=== PATIENT | female | born 1950 | race Caucasian/White ===

== ENCOUNTER 2017-10-17 16:50 | Inpatient (IN) | payer MEDICARE ==
[2017-10-17] MEDS ORDERED: IV NORMAL SALINE 1000ML BAG 1,000 ML IV (18:00)
[2017-10-17 19:05] LABS: ADD MAN DIFF? NO
[2017-10-17 19:09] LABS: BASO % 1 % (0-3); EOS % 0 % (0-3); LYMPH # 0.9 x10^3/uL (1.0-4.8); LYMPH % 30 % (24-48); MEAN CORPUSCULAR HEMOGLOBIN 21 pg (25-35); MEAN CORPUSCULAR HGB CONC 30 g/dL (31-37); MEAN CORPUSCULAR VOLUME 70 fL (79-100); MONO # 0.3 x10^3/uL (0.0-1.1); MONO % 9 % (0-9); NEUT # 1.7 x10^3uL (1.8-7.7); NEUT % 60 % (31-73); PLATELET COUNT 207 x10^3/uL (140-400); RED BLOOD COUNT 2.66 x10^6/uL (3.50-5.40); WHITE BLOOD COUNT 2.9 x10^3/uL (4.0-11.0)
[2017-10-17 19:15] LABS: HEMATOCRIT 18.6 % (36.0-47.0); HEMOGLOBIN 5.6 g/dL (12.0-15.5)
[2017-10-17 19:23] LABS: ALBUMIN 3.1 g/dL (3.4-5.0); ALBUMIN/GLOBULIN RATIO 0.9 (1.0-1.7); ALK PHOS 61 U/L (46-116); ALT (SGPT) 13 U/L (14-59); ANION GAP 10 (6-14); AST (SGOT) 13 U/L (15-37); BLOOD UREA NITROGEN 16 mg/dL (7-20); BUN/CREATININE RATIO 27 (6-20); CALCIUM 8.6 mg/dL (8.5-10.1); CARBON DIOXIDE 25 mmol/L (21-32); CHLORIDE 104 mmol/L (98-107); CREATININE 0.6 mg/dL (0.6-1.0); GFR 99.4; GLUCOSE 89 mg/dL (70-99); POTASSIUM 4.2 mmol/L (3.5-5.1); SODIUM 139 mmol/L (136-145); TOTAL BILIRUBIN 0.4 mg/dL (0.2-1.0); TOTAL PROTEIN 6.7 g/dL (6.4-8.2)
[2017-10-17 19:28] LABS: TROPONINI < 0.017 ng/mL (0.000-0.055)
[2017-10-17 19:28] LABS: INR 1.1 (0.8-1.1); PARTIAL THROMBOPLASTIN TIME 31 SEC (24-38); PROTHROMBIN TIME PATIENT 13.5 SEC (11.7-14.0)
[2017-10-17 19:49] LABS: PLT ESTIMATE ADEQUATE (ADEQUATE)
[2017-10-17 19:51] LABS: ANISOCYTOSIS MOD; HYPOCHROMIA MOD; MICROCYTOSIS MARKED; OVALOCYTES FEW; POLYCHROMASIA SLIGHT; TEAR DROP CELLS FEW
[2017-10-17] MEDS: PANTOPRAZOLE SODIUM IV DRIP 80 MG in IV NORMAL SALINE 100ML 100 ML IV (21:57)
[2017-10-17 22:05] LABS: IMMEDIATE SPIN CROSSMATCH 1
[2017-10-18] MEDS: PANTOPRAZOLE SODIUM IV DRIP 80 MG in IV NORMAL SALINE 100ML 100 ML IV ×2 (09:04→20:31)
[2017-10-18] MEDS: IV NORMAL SALINE 1000ML BAG 1,000 ML IV ×2 (10:00→20:32)
[2017-10-18 10:26] LABS: HEMATOCRIT 25.4 % (36.0-47.0); HEMOGLOBIN 7.7 g/dL (12.0-15.5); MEAN CORPUSCULAR HGB CONC 30 g/dL (31-37)
[2017-10-18] MEDS: SUCRALFATE 1 GM TABLET. PO ×3 (11:48→20:08)
[2017-10-18 12:43] LABS: HEMOGLOBIN 7.6 g/dL (12.0-15.5); MEAN CORPUSCULAR HGB CONC 30 g/dL (31-37)
[2017-10-18 13:12] LABS: THYROID STIM HORMONE (TSH) 2.696 uIU/mL (0.358-3.74)
[2017-10-18 13:20] LABS: FERRITIN 5 ng/mL (8-252)
[2017-10-18 14:50] LABS: IMMEDIATE SPIN CROSSMATCH 1 3
[2017-10-19] MEDS: PANTOPRAZOLE SODIUM IV DRIP 80 MG in IV NORMAL SALINE 100ML 100 ML IV ×2 (00:39→06:10)
[2017-10-19 06:59] LABS: HEMATOCRIT 30.3 % (36.0-47.0); HEMOGLOBIN 9.2 g/dL (12.0-15.5); MEAN CORPUSCULAR HGB CONC 30 g/dL (31-37)
[2017-10-19] MEDS: PANTOPRAZOLE 40 MG TABLET.DR. PO ×2 (08:49→16:10)
[2017-10-19] MEDS: SUCRALFATE 1 GM TABLET. PO ×4 (08:49→20:00)
[2017-10-19] MEDS: DICLOFENAC SODIUM 1% TOPICAL GEL 100GM TUBE. TP (15:56)
[2017-10-19] MEDS: ACETAMINOPHEN 325 MG TABLET. PO (16:10)
[2017-10-20 05:38] LABS: HEMOGLOBIN 9.1 g/dL (12.0-15.5); MEAN CORPUSCULAR HEMOGLOBIN 24 pg (25-35); MEAN CORPUSCULAR HGB CONC 31 g/dL (31-37); MEAN CORPUSCULAR VOLUME 75 fL (79-100); PLATELET COUNT 202 x10^3/uL (140-400); RED BLOOD COUNT 3.86 x10^6/uL (3.50-5.40); RED CELL DISTRIBUTION WIDTH 22.5 % (11.5-14.5); WHITE BLOOD COUNT 2.5 x10^3/uL (4.0-11.0)
[2017-10-20] MEDS: SUCRALFATE 1 GM TABLET. PO ×4 (08:46→20:16)
[2017-10-20] MEDS: PANTOPRAZOLE 40 MG TABLET.DR. PO ×2 (08:46→17:15)
[2017-10-20] MEDS: DICLOFENAC SODIUM 1% TOPICAL GEL 100GM TUBE. TP (08:47)
[2017-10-20 09:12] LABS: VITAMIN-B12 201 pg/mL (247-911)
[2017-10-20] MEDS: IRON SUCROSE COMPLEX 500 MG in IV NORMAL SALINE 250ML 250 ML IV (09:19)
[2017-10-20] MEDS: IV RINGERS,LACTATED 1000ML 1,000 ML IV (12:21)
[2017-10-20] MEDS ORDERED: LIDOCAINE 2% PF Vial for OR 5 ML VIAL. (12:42)
[2017-10-20] MEDS ORDERED: PROPOFOL 20 ML IV (12:42)
[2017-10-21] MEDS: IV RINGERS,LACTATED 1000ML 1,000 ML IV (02:20)
[2017-10-21 05:53] LABS: ADD MAN DIFF? NO
[2017-10-21 06:06] LABS: BASO % 0 % (0-3); EOS # 0.1 x10^3/uL (0.0-0.7); EOS % 2 % (0-3); HEMOGLOBIN 9.4 g/dL (12.0-15.5); LYMPH # 0.7 x10^3/uL (1.0-4.8); LYMPH % 25 % (24-48); MEAN CORPUSCULAR HEMOGLOBIN 23 pg (25-35); MEAN CORPUSCULAR HGB CONC 30 g/dL (31-37); MEAN CORPUSCULAR VOLUME 75 fL (79-100); MONO # 0.3 x10^3/uL (0.0-1.1); MONO % 11 % (0-9); NEUT # 1.8 x10^3uL (1.8-7.7); NEUT % 61 % (31-73); PLATELET COUNT 219 x10^3/uL (140-400); RED BLOOD COUNT 4.12 x10^6/uL (3.50-5.40); RED CELL DISTRIBUTION WIDTH 22.9 % (11.5-14.5); WHITE BLOOD COUNT 2.9 x10^3/uL (4.0-11.0)
[2017-10-21] MEDS: PANTOPRAZOLE 40 MG TABLET.DR. PO (08:58)
[2017-10-21] MEDS: CYANOCOBALAMIN (VITAMIN B-12) 1,000 MCG/ML VIAL SQ (08:58)
== END 2017-10-21 14:11 | disposition home or self-care (01) | DRG 378 ==
LOC: 6 SOUTH 16:50
PROC: 0DJ08ZZ Inspection of Upper Intestinal Tract, Via Natural or Artificial Opening Endoscopic (ICD-10-PCS; principal; 2017-10-20 13:00)
PROC: 30233N1 Transfusion of Nonautologous Red Blood Cells into Peripheral Vein, Percutaneous Approach (ICD-10-PCS; 2017-10-20 13:03)
DX: K92.2 Gastrointestinal hemorrhage, unspecified (principal); D62 Acute posthemorrhagic anemia; D50.9 Iron deficiency anemia, unspecified; D72.819 Decreased white blood cell count, unspecified; E53.8 Deficiency of other specified B group vitamins; K25.4 Chronic or unspecified gastric ulcer with hemorrhage; K44.9 Diaphragmatic hernia without obstruction or gangrene; Z87.11 Personal history of peptic ulcer disease; Z91.011 Allergy to milk products
CPT/HCPCS: 36415; 71111; 80053; 82607; 82728; 84443; 84484; 85014; 85018; 85025; 85027; 85610; 85730; 86850; 86900; 86901; 86920; 93005; C9113; J1756; J2704; J3420; J7030; J7050; J7120; P9016

== ENCOUNTER → 2017-11-24 | Outpatient (CLI) | payer MEDICARE | END | disposition home or self-care (01) | LOC: KCIC MAMMO 10:56 | DX: Z12.31 Encounter for screening mammogram for malignant neoplasm of breast (principal); Z13.820 Encounter for screening for osteoporosis; M85.88 Other specified disorders of bone density and structure, other site; M81.0 Age-related osteoporosis without current pathological fracture; Z78.0 Asymptomatic menopausal state | CPT/HCPCS: 77067; 77080 ==

== ENCOUNTER → 2018-09-14 | Outpatient (CLI) | payer BC, MEDICARE ==
[~2018-09-14] VITALS: Ht 165.1 cm; Wt 73.5 kg
[~2018-09-14] MED LIST: ACET500T68 PO; ALBU2.5V8 INH; ALEN70TA6 PO; FAMO-63 PO; FERR325T72 PO; IRON18TA PO; OMEP40CA5 PO; PANT20TA3 PO; PANT40TA77 PO; SUCR1TAB PO; ZOLEDRONICACID 5mg/100mlPREMIX 100 ML IV ONE
[2018-09-14 10:35] VITALS: BP 140/64
== END | disposition home or self-care (01) ==
LOC: OPS 09:27
PROVIDERS: ATTEND Family Medicine
DX: M81.0 Age-related osteoporosis without current pathological fracture (principal); I25.10 Atherosclerotic heart disease of native coronary artery without angina pectoris; M19.90 Unspecified osteoarthritis, unspecified site; K21.9 Gastro-esophageal reflux disease without esophagitis; E03.9 Hypothyroidism, unspecified; D61.818 Other pancytopenia; F32.9 Major depressive disorder, single episode, unspecified; D72.829 Elevated white blood cell count, unspecified; Z98.890 Other specified postprocedural states; Z78.0 Asymptomatic menopausal state; Z90.710 Acquired absence of both cervix and uterus; Z98.1 Arthrodesis status; Z79.899 Other long term (current) drug therapy; Z87.11 Personal history of peptic ulcer disease
CPT/HCPCS: 96365; J3489

== ENCOUNTER 2019-01-04 16:05 | Inpatient (IN) | payer BC, MEDICARE ==
[2019-01-04] VITALS (8 sets, daily range): BP systolic 103–123; BP diastolic 29–53
[~2019-01-04] VITALS: Ht 165.1 cm; Wt 74.4 kg
[~2019-01-04 16:05] MED LIST changes: -ALBU2.5V8 INH; +PANT40TA5 PO; -PANT40TA77 PO; -SUCR1TAB PO; -ZOLEDRONICACID 5mg/100mlPREMIX 100 ML IV ONE
[2019-01-04] MEDS ORDERED: ACETAMINOPHEN 500 MG TABLET PO PRN (18:30)
--- NOTE | 2019-01-04 18:59 | HP ---
ADMIT DATE: 01/04/2019 CHIEF COMPLAINT: Weakness. HISTORY OF PRESENT ILLNESS: A 68-year-old white female with chronic anemia secondary to GI blood loss, presented to the office with weakness, fatigue and ____ consistent with worsening anemia. Hemoglobin was found to be 6 and she was admitted for further evaluation because of weakness and chest pain. She has not noted melena or hematochezia, but still has chronic dysphagia after endoscopy in July 2018 showed a distal esophageal stricture that was benign in nature. She has been taking iron pills periodically and her last hemoglobin prior to admission was 10.4 in August 2018. PAST MEDICAL HISTORY: Well documented in the old records. Colonoscopy, timing is unclear, but does not found bleeding lesion, just having ____. FAMILY HISTORY: Unremarkable. SURGICAL HISTORY: Unremarkable. REVIEW OF SYSTEMS: No other complaints. OBJECTIVE: HEENT: Moderate pallor, sclerae are clear. TMs and pharynx normal. NECK: Revealed no carotid bruits, JVD, nodes or masses. LUNGS: Clear. CARDIOVASCULAR: Regular rate. Grade 2 systolic murmur. Mild tachycardia. EXTREMITIES: Nail bed pallor is noted. Pulses are diminished. No edema is noted. NEUROLOGIC: Physiologic and nonfocal. ASSESSMENT: Chronic and recurrent microcytic anemia secondary to occult gastrointestinal blood loss, history of distal esophageal strictures. PLAN: Admit for transfusion of 2 units of packed cells and GI consideration for upper endoscopy. See orders. LAVERNE ACOSTA MD DR: SHREYA/tyler JOB#: [id number] / [id number]
[2019-01-04 19:03] LABS: BASO % 1 % (0-3); EOS % 1 % (0-3); LYMPH # 0.7 x10^3/uL (1.0-4.8); LYMPH % 26 % (24-48); MEAN CORPUSCULAR HEMOGLOBIN 19 pg (25-35); MEAN CORPUSCULAR HGB CONC 29 g/dL (31-37); MEAN CORPUSCULAR VOLUME 66 fL (79-100); MONO # 0.2 x10^3/uL (0.0-1.1); MONO % 8 % (0-9); NEUT # 1.8 x10^3uL (1.8-7.7); NEUT % 65 % (31-73); PLATELET COUNT 214 x10^3/uL (140-400); RED BLOOD COUNT 2.78 x10^6/uL (3.50-5.40); RED CELL DISTRIBUTION WIDTH 17.6 % (11.5-14.5); WHITE BLOOD COUNT 2.8 x10^3/uL (4.0-11.0)
[2019-01-04 19:12] LABS: HEMOGLOBIN 5.3 g/dL (12.0-15.5)
[2019-01-04 19:26] LABS: ALBUMIN 3.2 g/dL (3.4-5.0); ALBUMIN/GLOBULIN RATIO 0.9 (1.0-1.7); CALCIUM 8.4 mg/dL (8.5-10.1); CREATININE 0.7 mg/dL (0.6-1.0); GFR 82.7; POTASSIUM 4.1 mmol/L (3.5-5.1); TOTAL BILIRUBIN 0.4 mg/dL (0.2-1.0); TOTAL PROTEIN 6.9 g/dL (6.4-8.2)
--- NOTE | 2019-01-04 19:28 | NUR ---
The patient, SHENG VARELA, 68 y/o, F admitted by LAVERNE ACOSTA MD, was given written information regarding hospital policies, unit procedures and contact persons. Valuables were checked and NOTED TO CHART.
[2019-01-04 19:49] LABS: PLT ESTIMATE ADEQUATE (ADEQUATE)
[2019-01-04 19:51] LABS: ANISOCYTOSIS SLIGHT; HYPOCHROMIA MARKED; POIKILOCYTOSIS SLIGHT
[2019-01-04 19:52] LABS: MICROCYTOSIS MARKED; OVALOCYTES FEW; TEAR DROP CELLS OCC
[2019-01-05] VITALS (11 sets, daily range): BP systolic 94–150; BP diastolic 28–59
[2019-01-05] MEDS: PANTOPRAZOLE 40 MG TABLET.DR. PO SCH (07:30)
--- NOTE | 2019-01-05 08:27 | PDOC ---
Provider Note Provider Note vss, hb 5.3 after 2 u prbc- 1 more unit today, follow- gi consult pending,rest of lab ok LAVERNE ACOSTA MD Jan 05, 2019 08:27
[2019-01-05] MEDS ORDERED: ACETAMINOPHEN 325 MG TABLET. PO PRN (08:30)
[2019-01-05] MEDS: FERROUS SULFATE 325 MG TABLET. PO SCH (09:00)
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
[2019-01-05 09:41] LABS: HEMATOCRIT 18.4 % (36.0-47.0)
[2019-01-05 10:30] LABS: HEMOGLOBIN 8.1 g/dL (12.0-15.5); RED BLOOD COUNT 3.84 x10^6/uL (3.50-5.40); WHITE BLOOD COUNT 2.9 x10^3/uL (4.0-11.0)
[2019-01-05 10:31] LABS: HEMATOCRIT 27.4 % (36.0-47.0); RED CELL DISTRIBUTION WIDTH 20.2 % (11.5-14.5)
[2019-01-05] MEDS ORDERED: LIDOCAINE 2% PF 5 ML VIAL. ONE (15:15)
[2019-01-05] MEDS ORDERED: PROPOFOL 20 ML IV ONE (15:15)
--- NOTE | 2019-01-05 15:35 | PDOC4 ---
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
[2019-01-06 03:00] VITALS: BP 103/49
[2019-01-06 07:00] VITALS: BP 115/37
[2019-01-06] MEDS: PANTOPRAZOLE 40 MG TABLET.DR. PO SCH (07:55)
[2019-01-06] MEDS: FERROUS SULFATE 325 MG TABLET. PO SCH ×2 (07:55→08:44)
--- NOTE | 2019-01-06 08:38 | PDOC ---
Provider Note Provider Note [id number] LAVERNE ACOSTA MD January 06, 2019 08:38
--- NOTE | 2019-01-06 10:57 | PDOC ---
Subjective: Subjective: Feeling better, glad to get to go home today. 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 Encouraged compliance w/ PPI and iron. Follow-up re: biopsy results and any plans for EUS and/or colonoscopy/SBCE. USHA SCOTT January 06, 2019 10:57
[2019-01-06 11:00] VITALS: BP 110/33
--- NOTE | 2019-01-06 15:40 | NUR ---
Patient was discharged from the facility at 1500. The patient left with her belongings and discharge information. The discharge information was discussed with the patient and she had no questions or concerns regarding the information. The patient was escorted from the unit in a wheelchair by staff to a private vehicle being driven by family.
--- NOTE | 2019-01-06 15:46 | DS ---
DATE OF DISCHARGE: 01/06/2019 HOSPITAL SUMMARY: A 68-year-old white female with chronic recurrent anemia secondary to occult GI bleeding, came in with a hemoglobin of 5.8, fatigue, chest pain and exertional dyspnea. MCV was microcytic consistent with chronic iron loss. Rest of chemistry profile unremarkable. After 2 units of packed cells, her hemoglobin was up to 8.1 on 01/05/2019. She underwent upper endoscopy with no active bleeding, but some lesions were found in the stomach. They were biopsied by Dr. Pandey and results are pending at this time. If he is comfortable, she will be discharged later today and followed as an outpatient. FINAL DIAGNOSES: Chronic iron deficiency anemia secondary to occult gastrointestinal bleeding. OPERATIONS AND PROCEDURES: EGD and gastric biopsies. COMPLICATIONS: None. CONSULTATIONS: Dr. Pandey. DISPOSITION: Home meds remain the same. Office follow up in 1 week with myself and with Dr. Pandey in 1-2 weeks regarding biopsy reports and further plans based on this. Prognosis is guarded. LAVERNE ACOSTA MD DR: SHREYA/tyler JOB#: [id number] / [id number]
--- NOTE | 2019-01-07 14:41 | PATHOLOGY ---
[facility] Accession Number: [id number] . 01 Material submitted: . stomach - GASTRIC ANTRUM BIOPSY . 01 Clinical history: . GI bleed . 02 Diagnosis: Gastric biopsies, gastric antrum: - Hyperplastic antral polyp. . (JPM:mm; 01/07/2019) [facility]/01/07/2019 . 02 Comment: Sections of the gastric biopsy reveal segments of gastric antral mucosa showing congestion and foveolar hyperplasia and no significant inflammation. A properly-controlled immunoperoxidase stain for Helicobacter is obtained. No Helicobacter organisms are identified. The findings are compatible with a hyperplastic antral polyp. There are no adenomatous changes or evidence of malignancy. . Special stain performed: Immunoperoxidase stain for Helicobacter. . (JPM:mml; 01/07/2019) . 02 Electronically signed: . Sheldon Marinelli MD, Pathologist NPI- [id number] . 01 Gross description: . Received in formalin labeled "Akash, Tonya, gastric antrum BX," are 6 segments of ogden soft tissue measuring 1.3 x 0.8 x 0.2 cm in aggregate dimensions and ranging from 0.3 to 0.6 cm in maximum dimension. The specimen is submitted entirely in cassette A1. (TSD; 01/06/2019) TOB/TOB . 02 Pathologist provided ICD-10: K31.7 . 02 CPT . 781059, W52918 Specimen Comment: A courtesy copy of this report has been sent to Specimen Comment: [phone], . Specimen Comment: Report sent to / DR ACOSTA Performed at: [address], [place], [place] [id number] MD Adan Bowser MD Phone: [phone] Performed at: [address] [id number] MD Sheldon Marinelli MD Phone: [phone]
[2019-02-12] MEDS ORDERED: SUCR1TAB PO (07:10)
[2019-02-12] MEDS ORDERED: ALBU2.5V8 INH (07:10)
== END 2019-01-06 15:00 | disposition home or self-care (01) | DRG 378 ==
LOC: 5 NORTH 17:01
PROVIDERS: ADMIT Family Medicine; ATTEND Family Medicine
PROC: 30233N1 Transfusion of Nonautologous Red Blood Cells into Peripheral Vein, Percutaneous Approach (ICD-10-PCS; principal; 2019-01-04)
PROC: 0DB48ZX Excision of Esophagogastric Junction, Via Natural or Artificial Opening Endoscopic, Diagnostic (ICD-10-PCS; 2019-01-05)
DX: K92.2 Gastrointestinal hemorrhage, unspecified (principal); E44.0 Moderate protein-calorie malnutrition; K22.2 Esophageal obstruction; D50.0 Iron deficiency anemia secondary to blood loss (chronic); M81.0 Age-related osteoporosis without current pathological fracture; G47.33 Obstructive sleep apnea (adult) (pediatric); K44.9 Diaphragmatic hernia without obstruction or gangrene; Z90.710 Acquired absence of both cervix and uterus
CPT/HCPCS: 36415; 43239; 80053; 82607; 85025; 85027; 86850; 86900; 86901; 86920; 88305; 88342; J2001; J2704; P9016

== ENCOUNTER → 2019-02-12 | Day surgery (SDC) | payer BC, MEDICARE ==
[~2019-02-12] MED LIST changes: +ALBU2.5V8 INH; +GLYCOPYRROLATE 1 MG/5 ML SYRINGE. ONE; +HYDROmorphone 2 MG/ML VIAL IV PRN; +IV RINGERS,LACTATED 1000ML 1,000 ML IV SCH; +LIDOCAINE 1% PF 2 ML VIAL. ID PRN; +LIDOCAINE 2% PF 5 ML VIAL. ONE; +MORPHINE SULFATE 2 MG/ML VIAL. IV PRN; +ONDANSETRON PF 4 MG/2 ML VIAL. IV PRN; +PROCHLORPERAZINE 10 MG/2 ML VIAL. IV PRN; +PROPOFOL 20 ML IV ONE; +SUCR1TAB PO; +fentaNYL PF VIAL 100 MCG/2 ML VIAL IV PRN
[2019-02-12 08:31] VITALS: BP 131/65
== END ==
LOC: ENDOS 06:24
PROVIDERS: ATTEND Internal Medicine Gastroenterology
DX: K57.30 Diverticulosis of large intestine without perforation or abscess without bleeding (principal); D50.0 Iron deficiency anemia secondary to blood loss (chronic); K64.0 First degree hemorrhoids; K44.9 Diaphragmatic hernia without obstruction or gangrene; K21.9 Gastro-esophageal reflux disease without esophagitis; Z90.710 Acquired absence of both cervix and uterus
CPT/HCPCS: 45378; J2001; J2704; J3490

== ENCOUNTER → 2019-03-01 | Outpatient (CLI) | payer BC, MEDICARE ==
[2019-02-12 08:31] VITALS: BP 131/65
[~2019-03-01] MED LIST changes: +BARIUM SULFATE 60% 355 ML SUSP PO ONE; -GLYCOPYRROLATE 1 MG/5 ML SYRINGE. ONE; -HYDROmorphone 2 MG/ML VIAL IV PRN; -IV RINGERS,LACTATED 1000ML 1,000 ML IV SCH; -LIDOCAINE 1% PF 2 ML VIAL. ID PRN; -LIDOCAINE 2% PF 5 ML VIAL. ONE; -MORPHINE SULFATE 2 MG/ML VIAL. IV PRN; -ONDANSETRON PF 4 MG/2 ML VIAL. IV PRN; -PROCHLORPERAZINE 10 MG/2 ML VIAL. IV PRN; -PROPOFOL 20 ML IV ONE; -fentaNYL PF VIAL 100 MCG/2 ML VIAL IV PRN
--- NOTE | 2019-03-01 16:47 | RAD ---
CLINICAL HISTORY: Anemia COMPARISON: None available. TECHNIQUE: A small bowel follow-through study was performed. Barium contrast was ingested orally and multiple were taken at time intervals until barium reached the cecum. Additional spot images were obtained during manual compression. FINDINGS: The electrical line mechanic film demonstrates a nonobstructive bowel gas pattern. There are no abnormal calcifications projected in the region of the kidneys, bladder, or gallbladder. Moderate to large volume colonic stool content is seen. The serial films of barium traversing the small bowel to the cecum reveal a normal transit time. Contrast material is present in the colon after 60 minutes. Small bowel mucosal pattern and caliber is normal throughout. There is no evidence of obstruction or filling defect. The terminal ileum appears normal. Fluoroscopy time: 0.3 minutes IMPRESSION: Normal small bowel follow through exam. Electronically signed by: Carlos Duff MD (03/01/2019 4:44 PM) [facility]
== END | disposition home or self-care (01) ==
LOC: RAD 07:17
PROVIDERS: ATTEND Internal Medicine Gastroenterology
DX: D64.9 Anemia, unspecified (principal)
CPT/HCPCS: 74250

== ENCOUNTER → 2020-04-12 | Outpatient (CLI) | payer BC ==
[2020-03-01 08:56] VITALS: BP 160/70
[~2020-04-12] MED LIST changes: -BARIUM SULFATE 60% 355 ML SUSP PO ONE; +OMEP40CA45 PO; -OMEP40CA5 PO; -PANT40TA5 PO; +PANT40TA77 PO; +TRAM50TA PO
--- NOTE | 2020-04-12 11:33 | KCIC ---
UPPER GI AIR CONTRAST WITH KUB History: Hiatal hernia, reflux, GI bleed, history of Crohn's Comparison: None. Findings: Rail Car Painter/Sandblaster radiograph demonstrates a nonobstructive bowel gas pattern. Calcifications in the left upper quadrant of the abdomen are likely due to splenic granulomas. Upper GI exam was performed. There is moderate to large hiatal hernia containing about one half of the superior stomach. Overall caliber of the esophagus is within normal limits, some tertiary contractions of the distal one third of esophagus. There was residual column of contrast in the esophagus with patient in prone oblique position although emptied with patient in upright position. There is mild narrowing or incomplete relaxation at level of the lower esophageal sphincter. Fluoroscopy time 3.02 minutes and 28 images Impression: 1. There is moderate to large hiatal hernia containing about one half of the superior stomach. There is mild esophageal dysmotility. Electronically signed by: Allen Ruvalcaba MD (04/12/2020 11:30 AM) [id number]
== END | disposition home or self-care (01) ==
LOC: KCIC 07:50
PROVIDERS: ATTEND Surgery
DX: K21.9 Gastro-esophageal reflux disease without esophagitis (principal); K44.9 Diaphragmatic hernia without obstruction or gangrene
CPT/HCPCS: 74240

== ENCOUNTER → 2020-04-18 | Outpatient (CLI) | payer BC ==
[2020-03-01 08:56] VITALS: BP 160/70
--- NOTE | 2020-04-18 11:50 | CARD ---
MR#: [id number] Date of Study: 04/18/2020 Ordering Physician: ANDREA GUTIERREZ, Referring Physician: ANDREA GUTIERREZ, Tech: Natalie Pemberton [facility] APPROVED REPORT EXAM: Two-dimensional and M-mode echocardiogram with Doppler and color Doppler. Other Information Quality : Good INDICATION Dyspnea 2D DIMENSIONS RVDd2.8 (2.9-3.5cm)Left Atrium(2D)2.9 (1.6-4.0cm) IVSd1.4 (0.7-1.1cm)Aortic Root(2D)2.9 (2.0-3.7cm) LVDd3.7 (3.9-5.9cm)LVOT Diameter2.2 (1.8-2.4cm) PWd0.9 (0.7-1.1cm)LVDs2.6 (2.5-4.0cm) FS (%) 29.6 %SV34.2 ml LVEF(%)57.5 (>50%) Aortic Valve AoV Peak Murtaza.166.2cm/sAoV VTI36.0cm AO Peak GR.11.1mmHgLVOT Peak Murtaza.121.0cm/s LVOT VTI 27.93cmAO Mean GR.6mmHg EMILIA (VMAX)2.73pb1SDW (VTI)2.82cm2 Mitral Valve MV E Iertmxxh20.3cm/sMV DECEL BHRM223pt MV A Boxllwbh48.9cm/sMV EMB57gm E/A Ratio0.6MVA (PHT)3.31cm2 TDI E/Lateral E'14.0E/Medial E'10.5 Tricuspid Valve TR P. Nbgufwrl693ae/sRAP USTXKTTC6fbHt TR Peak Gr.35qtNdQCCC60zuWc Pulmonary Vein S1 Zbywpibi16.1cm/sD2 Wwqhpyfv34.2cm/s LEFT VENTRICLE The left ventricle is normal size. There is normal left ventricular wall thickness. The left ventricu lar systolic function is normal and the ejection fraction is within normal range. The Ejection Fracti on is 60-65%. There is normal LV segmental wall motion. Transmitral Doppler flow pattern is Grade I-a bnormal relaxation pattern. RIGHT VENTRICLE The right ventricle is normal size. The right ventricular systolic function is normal. ATRIA The left atrium size is normal. The right atrium size is normal. The interatrial septum is intact wit h no evidence for an atrial septal defect or patent foramen ovale as noted on 2-D or Doppler imaging. AORTIC VALVE The aortic valve is calcified but opens well. Doppler and Color Flow revealed no significant aortic r egurgitation. There is no significant aortic valvular stenosis. MITRAL VALVE The mitral valve is normal in structure and function. There is no evidence of mitral valve prolapse. There is no mitral valve stenosis. Doppler and Color Flow revealed no mitral valve regurgitation note d. TRICUSPID VALVE The tricuspid valve is normal in structure and function. Doppler and Color Flow revealed mild tricusp id regurgitation. There is mild pulmonary hypertension. The PA pressure was estimated at 33 mmHg. The re is no tricuspid valve stenosis. PULMONIC VALVE The pulmonic valve is not well visualized. Doppler and Color Flow revealed no pulmonic valvular regur gitation. There is no pulmonic valvular stenosis. GREAT VESSELS The aortic root is normal in size. The ascending aorta is moderately dilated at 3.6 cm. The IVC is no rmal in size and collapses >50% with inspiration. PERICARDIAL EFFUSION There is no evidence of significant pericardial effusion. Critical Notification Critical Value: No <Conclusion> The left ventricular systolic function is normal and the ejection fraction is within normal range. Th e Ejection Fraction is 60-65%. There is normal LV segmental wall motion. The ascending aorta is moderately dilated at 3.6 cm. Signed by : Andrea Gutierrez, Electronically Approved : 04/18/2020 11:49:49
== END | disposition home or self-care (01) ==
LOC: ECHO 08:38
PROVIDERS: ATTEND Internal Medicine Cardiovascular Disease
DX: I08.2 Rheumatic disorders of both aortic and tricuspid valves (principal); I27.20 Pulmonary hypertension, unspecified
CPT/HCPCS: 93306

== ENCOUNTER → 2020-05-22 | Outpatient (CLI) | payer BC ==
[2020-03-01 08:56] VITALS: BP 160/70
[~2020-05-22] MED LIST changes: +BARIUM SULFATE 340 GM SUSPENSION. PO ONE; +BARIUM SULFATE 60% 355 ML SUSP PO ONE; +BARIUM SULFATE 700 MG TABLET PO ONE; +SIMETHICONE/SOD BICARB/CITRIC ACID PACKET. PO ONE
--- NOTE | 2020-05-22 13:07 | RAD ---
Barium esophagogram INDICATION: Hiatal hernia COMPARISON: Upper GI series 04/12/2020 TECHNIQUE: Bilateral upright posterior oblique imaging of the thoracic esophageal ingestion of thick and thin barium was performed in addition to use of effervescent crystals and a barium tablet. Supine imaging was also performed. Total fluoroscopy time was 2.2 minutes. 17 images were acquired for procedural documentation. FINDINGS: Persistent moderate sized hiatal hernia is present with mild delay in relaxation of the lower esophageal sphincter and minimal retropulsion of residual ingested contrast of the distal thoracic esophagus following near-complete emptying. The barium tablet persisted at the gastroesophageal junction in the lower thorax but eventually passed after additional ingestion of barium. IMPRESSION: Persistent moderate hiatal hernia with retention of the barium tablet at the gastroesophageal junction in the upright position, requiring additional ingestion of liquid barium for clearance. Mild esophageal dysmotility redemonstrated. Electronically signed by: Kourtney Carmona MD (05/22/2020 1:05 PM) [id number]
== END | disposition home or self-care (01) ==
LOC: RAD 08:12
PROVIDERS: ATTEND Surgery
DX: K44.9 Diaphragmatic hernia without obstruction or gangrene (principal); K21.9 Gastro-esophageal reflux disease without esophagitis; K22.4 Dyskinesia of esophagus
CPT/HCPCS: 74220

== ENCOUNTER → 2020-06-02 | Outpatient (CLI) | payer BC ==
[2020-03-01 08:56] VITALS: BP 160/70
[~2020-06-02] MED LIST changes: -BARIUM SULFATE 340 GM SUSPENSION. PO ONE; -BARIUM SULFATE 60% 355 ML SUSP PO ONE; -BARIUM SULFATE 700 MG TABLET PO ONE; +HYDR15SO6 PO; -SIMETHICONE/SOD BICARB/CITRIC ACID PACKET. PO ONE
== END | disposition home or self-care (01) ==
LOC: LAB 13:31
PROVIDERS: ATTEND Surgery
DX: Z01.812 Encounter for preprocedural laboratory examination (principal); K21.9 Gastro-esophageal reflux disease without esophagitis; Z20.828 Contact with and (suspected) exposure to other viral communicable diseases
CPT/HCPCS: U0003-CS

== ENCOUNTER → 2020-11-27 | Outpatient (CLI) | payer BC ==
[2020-06-10 15:00] VITALS: BP 115/62
[~2020-11-27] MED LIST changes: -ALEN70TA6 PO; +ALEN70TA71 PO; +REGADENOSON 0.4 MG/5 ML DISP.SYRIN. IV ONE
--- NOTE | 2020-11-27 17:28 | RAD ---
MR#: [id number] Date of Study: 11/27/2020 Ordering Physician: ANDREA GUTIERREZ, Referring Physician: VLADIMIR LUIS Tech: JORDI Paredes, ARRT (R) (N) APPROVED REPORT Test Type: Pharmacological Stress Nurse/Tech: Anne Ribeiro RN Test Indications: dyspnea, PSVT Cardiac History: No known cardiac Medications: See Electronic Medical Record Medical History: See Electronic Medical Record Resting ECG: SR PAC, BBB Resting Heart Rate: 65 bpm Resting Blood Pressure: 143/61mmHg Pretest Chest Pain: None Nurse/Tech Notes Lungs CTA Consent: The procedure was explained to the patient in lay terms. Informed consent was witnessed. Eric eout was entered into [employer]. History and Stress Test performed by RT Epifanio (R) (N) Pharm. Details Pharmacologic stress testing was performed using 0.4mg per 5ml of regadenoson given intravenously ove r 7-10 seconds. Stress Symptoms No chest pain or symptoms. POST EXERCISE Reason for Termination: Infusion complete Max HR: 111 bpm Max Blood Pressure: 137/48mmHg Blood Pressure response to exercise: Normal blood pressure response during stress. Heart Rate response to exercise: normal response Chest Pain: No. Arrhythmia: Yes. PAC ST Change: No. 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 Non-diagnostic changes a t peak stress. No arrhythmias. Imaging Protocol IMAGE PROTOCOL: Rest Tc-99m/stress Tc-99m 1 day Rest: Stress: Viability: Radiopharm.Tc99m IkhmxwokwHk79x Sestamibi Wzcm87nQx 31.6mCi Img Date 11/27/2020 11/27/2020 Inj-Img Gvew48nuj. 60min. Rest Admin Site:IV - Left AntecubitalAdministrator:RT Epifanio (R)(N) Stress Admin Site: IV - Left AntecubitalAdministrator: RT Epifanio (R)(N) STRESS DATA End Diast. Vol.71.0mlAv. Heart Rate69.0bpm End Syst. Vol.14.0mlCO Index BSA0.0L/min Myocardial Yuko273.0gEject. Qbhsndsk21.0% Stress Rates Pk. Fill Rate3.43EDV/secLVtime Pk. Fill 145.18msec Pk. Empty Rate4.61ESV/secLVtime Pk. Rtiql226.12msec 1/3 Pk. Fill1.84EDV/sec Stress Scores Regional WT0.00Summed WT0.00 Regional WM0.00Summed WM0.00 Study quality was good. Left Ventricular size was Normal at Rest and Stress. Lung uptake was . Left Ventricular ejection fraction is 76%. The rest and stress images show normal perfusion, normal contraction and thickening. LV Perf. Quant 17 Seg. SSS0.00 17 Seg. SRS1.00 17 Seg. SDS0.00 Stress Defect Extent (% LAD)0.00Rest Defect Extent (% LAD)0.00Rev. Defect Extent (% LAD)0.00 Stress Defect Extent (% LCX) 0.00Rest Defect Extent (% LCX)0.00Rev. Defect Extent (% LCX)0.00 Stress Defect Extent (% RCA)0.00Rest Defect Extent (% RCA)0.00Rev. Defect Extent (% RCA)0.00 Stress Defect Extent (% GARY)0.00Rest Defect Extent (% GARY)1.70Rev. Defect Extent (% GARY)0.00 Conclusion 1. Regadenoson cardioisotope stress test did not show any evidence of ischemia or infarct. 2. Normal left ventricular systolic function with ejection fraction calculated at 76%. 3. Low risk for cardiac events. Signed by : Marc Grewal, Electronically Approved : 11/27/2020 17:27:38
== END ==
LOC: NM 09:48
PROVIDERS: ATTEND Internal Medicine Cardiovascular Disease
DX: I47.1 Supraventricular tachycardia (principal); R06.00 Dyspnea, unspecified; D64.9 Anemia, unspecified; Z68.26 Body mass index [BMI] 26.0-26.9, adult
CPT/HCPCS: 78452; 93017; A9500; J2785

== ENCOUNTER → 2020-11-27 | Outpatient (CLI) | payer BC ==
[2020-06-10 15:00] VITALS: BP 115/62
[~2020-11-27] MED LIST changes: -REGADENOSON 0.4 MG/5 ML DISP.SYRIN. IV ONE
--- NOTE | 2020-11-27 16:16 | KCIC ---
INDICATION: Screening for osteopenia/osteoporosis. Postmenopausal evaluation. COMPARISON: 11/24/2017 TECHNIQUE: Bone densitometry was performed through the lumbar spine and proximal femur. IMPRESSION: Lumbar Spine: BMD: 0.85 T-Score: -1.8 Range: Osteopenic, increased by 6 percent from prior Proximal Femur: BMD: 0.73 T-Score: -1.7 Range: Osteopenic. Increased by 14 percent from prior World Health Organization Criteria for Bone Density: T-Score: > -1.0: Normal Range < -1.0 to -2.5: Osteopenic Range < -2.5: Osteoporotic Range Electronically signed by: Jacoby Lei MD (11/27/2020 4:14 PM) [id number]
--- NOTE | 2020-11-27 17:35 | KCIC ---
Bilateral digital screening mammograms: Reason for examination: Routine screening. Comparison is made to previous study dated 11/24/2017. Interpretation was made with the benefit of CAD. The skin and nipples show no abnormalities. No abnormal axillary lymph nodes are seen. The breast par enchyma shows scattered fibroglandular density. (Breast density: Category B.) There are no dominant m asses, suspicious calcifications or architectural distortions. Impression: No evidence of malignancy. Recommend routine screening. BI-RADS Category 1: Negative. "Our facility is accredited by the [employer] Mammography Program." This patient's information has been entered into a reminder system for the patient to be notified wit h the results of her examination and a target date for the next mammogram. Electronically signed by: Gaby Taveras MD (11/27/2020 5:33 PM) [id number]
== END ==
LOC: KCIC MAMMO 13:26
PROVIDERS: ATTEND Family Medicine
DX: Z12.31 Encounter for screening mammogram for malignant neoplasm of breast (principal); N95.1 Menopausal and female climacteric states; M85.88 Other specified disorders of bone density and structure, other site
CPT/HCPCS: 77067; 77080